=== PATIENT | female | born 1975 | race African-American/Black ===

== ENCOUNTER → 2019-01-12 | Outpatient (CLI) | payer BC ==
[~2019-01-12] MED LIST: APAP500; SINGULAIR
== END ==
LOC: ULTRA 13:23
DX: D25.9 Leiomyoma of uterus, unspecified (principal); N83.202 Unspecified ovarian cyst, left side

== ENCOUNTER → 2019-02-06 | Outpatient (CLI) | payer BC | LOC: ULTRA 13:25 | DX: N83.202 Unspecified ovarian cyst, left side (principal); D25.9 Leiomyoma of uterus, unspecified; Z88.8 Allergy status to other drugs, medicaments and biological substances ==

== ENCOUNTER → 2019-02-24 | Outpatient (CLI) | payer BC ==
[~2019-02-24] MED LIST changes: +ALBUTEROL2.5 MG/31 INH; +PROAIR HFA8.5 GM INH; +ZYRTEC-D TABLE1 EAC1 PO
== END ==
LOC: RAD 01:18
DX: Z12.31 Encounter for screening mammogram for malignant neoplasm of breast (principal)

== ENCOUNTER 2019-05-12 05:58 | Day surgery (SDC) | payer BC ==
[~2019-05-12] VITALS: Ht 160 cm; Wt 56.7 kg
--- NOTE | ~2019-05-12 | O ---
[facility] [place] [address] OPERATIVE REPORT Name: CAROLINE OLIVERA DOC Room #: DEP [facility]..#: [id number] Admission: 05/12/19 Attend Phys: Raquel Lowry DO Discharge: 05/12/19 Date of : 71 Report #: [id number] THIS REPORT FOR: //name// CC: Raquel Leroy Yuen DATE OF SERVICE: 05/12/2019 PREOPERATIVE DIAGNOSES: 1. Pelvic pain. 2. Left ovarian cyst. POSTOPERATIVE DIAGNOSES: 1. Pelvic pain. 2. Left ovarian cyst. OPERATIVE PROCEDURE: Laparoscopic left salpingo-oophorectomy. SURGEON: Dr. Raquel Lowry. ANESTHESIA: General. COMPLICATIONS: None. PATHOLOGY: Left fallopian tube and ovary. DESCRIPTION OF PROCEDURE: The patient was taken to the operating room where general anesthesia was administered and found to be adequate. She was then prepped and draped in normal sterile fashion in dorsal lithotomy position. A weighted speculum was placed in the patient's vagina. The anterior lip of the cervix was identified and grasped with a single tooth tenaculum. An acorn uterine manipulator was then placed into the cervix and connected to the single tooth tenaculum. The speculum was removed from the patient's vagina. Sterile gloves were changed and attention was turned to the patient's abdomen. A 5 mm infraumbilical skin incision was made with a scalpel. A 5 mm trocar was then inserted through this incision under direct visualization of the laparoscope. No insertional trauma was identified. Pneumoperitoneum was allowed to accumulate using carbon dioxide gas. Once this was sufficient, the patient was then placed in Trendelenburg position. A Pfannenstiel skin incision was made in the patient's left lower quadrant with a scalpel. This was a 5 mm incision. A 5 mm trocar was placed through this incision under direct visualization with the laparoscope. Again, no insertional trauma was identified. A third incision was placed approximately 2 cm above the symphysis pubis in the midline. This was an 11 mm incision and an 11 mm trocar was placed through this incision under direct visualization of laparoscope. No insertional trauma was identified. Once all trocars were placed, the left fallopian tube and ovary were retracted medially. [address] [address] OPERATIVE REPORT Name: CAROLINE OLIVERA [facility] Room #: DEP [facility] [place] M.Neal.#: [id number] Admission: 05/12/19 Attend Phys: Raquel Lowry DO Discharge: 05/12/19 Date of : 71 Report #: [id number] The infundibulopelvic ligament was then transected using the Sonicision device. The fallopian tube and uteroovarian ligament were then transected as well to be freed. Once all pedicles were noted to be hemostatic and the fallopian tube and ovary were completely released, an Endopouch was inserted through the large trocar at the suprapubic site and the specimen was removed using the Endopouch. Hemostasis was noted of all pedicles. [place] was placed over the pedicles. The pneumoperitoneum was allowed to escape. All trocars and instruments were removed from the patient's abdomen. The fascia was reapproximated on the suprapubic incision using 0 Vicryl. All skin incisions were then closed using 4-0 Vicryl. The patient tolerated the procedure well. Sponge, lap and needle counts were reported as correct and the patient was taken to the recovery room in stable condition after the instrumentation was removed from the patient's vagina. By: [id number] Raquel Lowry DO /nt
[~2019-05-12 05:58] MED LIST changes: +PROBIOTIC1 EAC7 PO
[2019-05-12 06:56] VITALS: BP 119/72
[2019-05-12] MEDS ORDERED: NORCO 5-325 TA1 EAC1 PO (09:35)
[2019-05-12] MEDS ORDERED: IBUPROFEN 600600 M1 PO (09:35)
[2019-05-12 09:50] VITALS: BP 119/72
--- NOTE | 2019-05-15 16:06 | PATH ---
[facility] [address] [place] [address] PATHOLOGY RPT PROCEDURE Name: CAROLINE SNIDER DOC Room #: DEP [facility] M.R.#: [id number] Admission: 05/12/19 Date of : 71 Discharge: 05/12/19 Report #: [id number] Path Case #: [id number] [facility] Accession Number: [id number] . 01 Material submitted: . ovary - LEFT TUBE AND OVARY. Modifiers: left . 01 Clinical history: . Unspecified ovarian cyst, left side; pelvic and perineal pain; dysmenorrhea, unspecified . 02 Diagnosis: Ovary and fallopian tube, left, salpingo-oophorectomy: - Hemorrhagic corpus luteum. - Background ovarian parenchyma showing physiologic changes including corpora albicantia. - Fallopian tube with reactive changes. . (IUV:mml; 05/15/2019) QL 05/15/2019 1321 Local . 02 Electronically signed: . Skylar Jaquez MD, Pathologist NPI- [id number] . 01 Gross description: . The specimen is received in formalin, labeled "Caroline Snider, left tube and ovary". Received is a 2 g fimbriated fallopian tube measuring 5.3 cm in length by up to 0.7 cm in diameter and separately submitted 7 g ovary measuring 3.1 x 2.7 x 2.0 cm in greatest dimensions. The serosal surface of the fallopian tube is pink-purple and glistening in appearance. Sectioning through the fallopian tube reveals a pinpoint to patent lumen. The ovarian surface is pale arias, smooth to irregular in contour. Sectioning through the ovary reveals several small cystic structures ranging in size from 0.1 to 0.2 cm. There are also multiple core poorly present ranging in size from 0.2 to 1.3 cm and corpora albicantia ranging in size from 0.1 to 0.4 cm. The specimen is submitted representatively in cassettes A1 through A3. (CAA; 05/12/2019) QAC/QA 05/12/2019 [facility]9 Local . 02 Pathologist provided ICD-10: R10.2, N94.6 . 02 CPT . 234971 Specimen Comment: A courtesy copy of this report has been sent to [phone] [address] PATHOLOGY RPT PROCEDURE Name: CAROLINE SNIDER DOC Room #: DEP [facility] Rashid#: [id number] Admission: 05/12/19 Date of : 71 Discharge: 05/12/19 Report #: [id number] Path Case #: [id number] Specimen Comment: Report sent to Performed at: [address], [place], [place] [id number] MD Leandro Tran MD Phone: [phone] Performed at: [address] [id number] MD Skylar Jaquez MD Phone: [phone]
== END 2019-05-12 10:35 | disposition home or self-care (01) ==
LOC: TBA 05:58 → OR 05:58 → TBA 06:00 → OR 10:35
DX: N83.12 Corpus luteum cyst of left ovary (principal); N94.6 Dysmenorrhea, unspecified; R10.2 Pelvic and perineal pain; J45.909 Unspecified asthma, uncomplicated; Z98.890 Other specified postprocedural states; Z79.899 Other long term (current) drug therapy; Z91.041 Radiographic dye allergy status; Z88.8 Allergy status to other drugs, medicaments and biological substances
CPT/HCPCS: 50010; 50101; 50249; 50386; 50400; 50555; 50558; 50900; 50962; 51975; 52265; 52287; 53307; 54022; 54118; 56525; 62110; 62900; 70005

== ENCOUNTER → 2020-07-15 | Outpatient (CLI) | payer BC ==
[~2020-07-15] MED LIST changes: +IBUPROFEN 600600 M1 PO; +NORCO 5-325 TA1 EAC1 PO
== END ==
LOC: BC 07-08 09:47
PROVIDERS: ATTEND Obstetrics & Gynecology
DX: Z12.31 Encounter for screening mammogram for malignant neoplasm of breast (principal); N64.89 Other specified disorders of breast